=== PATIENT | female | born 1990 | race Caucasian/White ===

== ENCOUNTER 2016-08-05 08:03 | Inpatient (IN) | payer BC, MEDICAID ==
[~2016-08-05] VITALS: Ht 170.2 cm; Wt 58.8 kg
[2016-08-05] MEDS ORDERED: SODIUM CHLORIDE 0.9% 1,000 ML ONE (10:11)
[2016-08-05] MEDS ORDERED: ONDANSETRON 4 MG VIAL ONE (10:11)
[2016-08-05] MEDS ORDERED: MORPHINE 4 MG/ML SYR ONE (10:11)
[2016-08-05] MEDS ORDERED: ONDANSETRON 4 MG VIAL IV PUSH PRN (12:20)
[2016-08-05] MEDS ORDERED: SALINE FLUSH 10 ML FLUSH PRN (12:20)
[2016-08-05 14:23] VITALS: BP_SYST 117; RESP 16; TEMP 97.8
[2016-08-05 14:25] VITALS: Ht 170.2 cm; Wt 58.8 kg
[2016-08-05] MEDS ORDERED: LACT RINGERS 500 ML IV ONE (14:30)
[2016-08-05] MEDS: FAMOTIDINE 20 MG INJ IV SCH ×2 (14:33→19:38)
[2016-08-05] MEDS: MORPHINE 4 MG/ML SYR IV PRN ×2 (14:34→17:55)
[2016-08-05] MEDS ORDERED: OPTIRAY 350 100 ML VIAL HMH IV ONE (14:58)
[2016-08-05] MEDS: SALINE FLUSH 10 ML FLUSH SCH (19:38)
[2016-08-05 19:51] VITALS: BP_SYST 116; RESP 16; TEMP 97.6
[2016-08-05] MEDS: DIPHENHYDRAMINE 50 MG/ML VIAL IV PRN (21:37)
[2016-08-05 23:21] VITALS: BP_SYST 108; RESP 16; TEMP 97.9
[2016-08-06] MEDS: MORPHINE 2 MG/ML SYR IV PRN ×7 (00:32→19:52)
[2016-08-06] MEDS: D5-1/2-NS W/KCL 20MEQ/L 1,000 ML IV SCH ×3 (00:33→19:53)
[2016-08-06 03:07] VITALS: BP_SYST 115; RESP 16; TEMP 98
[2016-08-06] MEDS: SODIUM CHLORIDE 0.9% FLUSH BAG 500 ML IV SCH ×2 (05:13→19:53)
[2016-08-06 07:29] VITALS: BP_SYST 119; RESP 16; TEMP 98
[2016-08-06] MEDS: SALINE FLUSH 10 ML FLUSH SCH ×2 (07:37→19:52)
[2016-08-06] MEDS: FAMOTIDINE 20 MG INJ IV SCH ×2 (07:37→19:51)
[2016-08-06 11:24] VITALS: BP_SYST 93; RESP 16; TEMP 97.6
[2016-08-06] MEDS: OMNIPAQUE 240 MG/ML, 50 ML PO SCH ×2 (13:38→15:57)
[2016-08-06 15:41] VITALS: BP_SYST 111; RESP 16; TEMP 98.1
[2016-08-06 19:50] VITALS: BP_SYST 121; RESP 16; TEMP 97.8
[2016-08-06 23:06] VITALS: BP_SYST 106; RESP 16; TEMP 98.2
[2016-08-07 03:14] VITALS: BP_SYST 98; RESP 16; TEMP 97.4
[2016-08-07] MEDS: D5-1/2-NS W/KCL 20MEQ/L 1,000 ML IV SCH ×2 (06:38→18:00)
[2016-08-07 07:11] VITALS: BP_SYST 108; RESP 16; TEMP 98.2
[2016-08-07] MEDS: MORPHINE 2 MG/ML SYR IV PRN ×3 (08:12→17:59)
[2016-08-07] MEDS: FAMOTIDINE 20 MG INJ IV SCH ×2 (08:12→20:49)
[2016-08-07] MEDS: SALINE FLUSH 10 ML FLUSH SCH ×2 (08:12→20:50)
[2016-08-07 10:49] VITALS: BP_SYST 91; RESP 14; TEMP 98.4
[2016-08-07 19:51] VITALS: BP_SYST 108; RESP 16; TEMP 98.1
[2016-08-07 23:14] VITALS: BP_SYST 103; RESP 16; TEMP 97.4
[2016-08-08] MEDS: MORPHINE 2 MG/ML SYR IV PRN ×6 (00:14→18:28)
[2016-08-08] MEDS: D5-1/2-NS W/KCL 20MEQ/L 1,000 ML IV SCH ×2 (00:15→14:26)
[2016-08-08] MEDS: SODIUM CHLORIDE 0.9% FLUSH BAG 500 ML IV SCH (02:20)
[2016-08-08 03:32] VITALS: BP_SYST 101; RESP 18; TEMP 97.8
[2016-08-08 07:07] VITALS: BP_SYST 100; RESP 18; TEMP 98
[2016-08-08] MEDS: SALINE FLUSH 10 ML FLUSH SCH ×2 (08:00→19:53)
[2016-08-08] MEDS: FAMOTIDINE 20 MG INJ IV SCH ×2 (08:49→19:53)
[2016-08-08 10:59] VITALS: BP_SYST 107; RESP 16; TEMP 97.6
[2016-08-08 15:06] VITALS: BP_SYST 105; RESP 18; TEMP 98
[2016-08-08] MEDS ORDERED: PHARMACY TO DOSE LEVAQUIN IV SCH (18:45)
[2016-08-08 19:23] VITALS: BP_SYST 108; RESP 16; TEMP 97.8
[2016-08-08] MEDS: LEVOFLOXACIN 500 MG/100 ML 100 ML IV SCH (19:53)
[2016-08-08] MEDS: MORPHINE 4 MG/ML SYR IV PRN ×2 (20:42→22:37)
[2016-08-08] MEDS: DIPHENHYDRAMINE 50 MG/ML VIAL IV PRN (23:13)
[2016-08-08 23:23] VITALS: BP_SYST 116; RESP 20; TEMP 97.7
[2016-08-09] VITALS (8 sets, daily range): BP systolic 94–117; RESP 16–20; TEMP 97.6–98.2
[2016-08-09] MEDS: SODIUM CHLORIDE 0.9% FLUSH BAG 500 ML IV SCH (01:32)
[2016-08-09] MEDS: MORPHINE 4 MG/ML SYR IV PRN ×4 (02:24→13:53)
[2016-08-09] MEDS: DIPHENHYDRAMINE 50 MG/ML VIAL IV PRN ×2 (05:53→14:30)
[2016-08-09] MEDS: SALINE FLUSH 10 ML FLUSH SCH ×2 (08:50→20:00)
[2016-08-09] MEDS: FAMOTIDINE 20 MG INJ IV SCH ×2 (08:51→20:00)
[2016-08-09] MEDS: LEVOFLOXACIN 500 MG/100 ML 100 ML IV SCH (08:51)
[2016-08-09] MEDS ORDERED: NON-FORMULARY MEDICATION PO SCH (09:34)
[2016-08-09] MEDS: D5-1/2-NS W/KCL 20MEQ/L 1,000 ML IV SCH (12:23)
[2016-08-10] MEDS: SODIUM CHLORIDE 0.9% FLUSH BAG 500 ML IV SCH (00:15)
[2016-08-10 07:29] VITALS: BP_SYST 104; RESP 15; TEMP 98.1
[2016-08-10] MEDS: FAMOTIDINE 20 MG INJ IV SCH (08:00)
[2016-08-10] MEDS: SALINE FLUSH 10 ML FLUSH SCH (08:00)
[2016-08-10] MEDS ORDERED: NON-FORMULARY MEDICATION PO SCH (09:00)
[2016-08-10] MEDS: LEVOFLOXACIN 500 MG/100 ML 100 ML IV SCH (09:00)
[2016-08-10 11:50] VITALS: BP_SYST 114; RESP 15; TEMP 97.8
[2016-08-10 12:46] VITALS: BP_SYST 114; RESP 15; TEMP 97.8
== END 2016-08-10 13:43 | disposition home or self-care (01) | DRG 386 ==
LOC: ENRESERVDT → ENRESERVTM → ER 08:03 → EMR 12:13 → ENPENDDIS 12:13 → 5THE 13:54
PROVIDERS: ADMIT Surgery; ATTEND Surgery
DX: K50.012 Crohn's disease of small intestine with intestinal obstruction (principal); N39.0 Urinary tract infection, site not specified; D47.3 Essential (hemorrhagic) thrombocythemia; Z93.3 Colostomy status
CPT/HCPCS: 36415; 74020; 74022; 74176; 74177; 80048; 80053; 81001; 83605; 83630; 83690; 84703; 85025; 87077; 87088; 87493; 96361; 96374; 96375